=== PATIENT | male | born 1970 | race Caucasian/White ===

== ENCOUNTER 2016-09-05 08:11 | Emergency (ER) | payer OTHER ==
[2016-09-05 08:17] VITALS: RESP 18; TEMP 97.9
--- NOTE | 2016-09-05 08:35 | EDPHY ---
H & P Stated Complaint: 2 days @ altitude from sea level;altitude sickness sxs:Nausea, h/a,SOB Time Seen by Provider: 09/05/16 08:34 - Personal History Current Tetanus Diphtheria and Acellular Pertussis (TDAP): Yes - Medical/Surgical History Other PMH: obesity - Social History Smoking Status: Never smoked Constitutional: Initial Vital Signs Temperature (C) 36.6 C 09/05/16 08:14 Heart Rate 79 09/05/16 08:14 Respiratory Rate 18 09/05/16 08:14 Blood Pressure 176/112 H 09/05/16 08:14 O2 Sat (%) 96 09/05/16 08:14 O2 Delivery Mode Room Air Allergies/Adverse Reactions: No Known Allergies Allergy (Unverified 09/05/16 08:13) Home Medications: Medication Instructions Recorded NK [No Known Home Meds] 09/05/16 Medical Decision Making - Diagnostics Imaging Results: Imaging Impressions Chest/Thorax CTA 09/05/16 08:46 Impression: No evidence for pulmonary embolic disease. Results called and discussed with Palmer Torres MD, at 09/05/2016 9:42 General information for patients regarding this examination can be found at [email or web address]. If you have questions or comments about this report, please contact me at [phone] (hospital) or [phone] (cell). A test result has been communicated to a licensed care provider and documented in the [facility] Critical Result system on 09/05/2016 9:43, Message ID [id number]. ED Course/Re-evaluation: CHIEF COMPLAINT: Headache, nausea, shortness of breath. HISTORY OF PRESENT ILLNESS: This patient is an obese 45 year old male complaining of headache, nausea, and shortness of breath onset this morning. He had [place] a cabin [place] a [place] flight from [place], [place]. He noted a slight headache last night, but felt fine otherwise. This morning he woke with increased headache as well as nausea and shortness of breath. He endorses slight pain in the "front of his throat" which he says may be related to his nausea. He denies pain in his calves or history of heart or breathing problems. He denies fever, chills, pain in his chest, or other associate symptoms. REVIEW OF SYSTEMS: A 10 point review of systems was performed and is negative with the exception of the elements mentioned in the history of present illness. PHYSICAL EXAM: HR, BP, O2 Sat, RR. Temp noted General Appearance: Alert, well hydrated, appropriate, and non-toxic appearing. Head: Atraumatic without scalp tenderness or obvious injury Eyes: Pupils equal, round, reactive to light and accommodation, EOMI, no trauma , no injection. Nose: Atraumatic, no rhinorrhea, clear. Throat: There is no erythema or exudates, no lesions, normal tonsils, mucus membranes moist. Neck: Supple, nontender, no lymphadenopathy. Respiratory: No retractions, no distress, no wheezes, and no accessory muscle use. Lungs are clear to auscultation bilaterally. Cardiovascular: Regular rate and rhythm, no murmurs, rubs, or gallops. Good capillary refill all extremities. Gastrointestinal: Abdomen is soft, nontender, non-distended, no masses, no rebound, no guarding, no peritoneal signs. Musculoskeletal: Normal active ROM of all extremities, atraumatic. Neurological: Alert, appropriate, and interactive. Non-focal neuro exam. Skin: No rashes, good turgor, no nodules on palpation. Past medical history: Gastritis Past surgical history: Noncontributory Family history: Noncontributory Social history: Lives in [place], [place]. DIAGNOSTICS/PROCEDURES/CRITICAL CARE TIME: The 12 lead EKG was interpreted by myself. See hard copy and/or "tracemaster" electronic copy for interpretation. Sinus rhythm, rate 77. Incomplete right bundle branch block. Study: CT Angiogram of the chest Indication: Shortness of breath Results: CT angiogram of the chest was obtained. The results of the study are normal. The study was read by the radiologist, Dr. Hale. I viewed the images myself on the PACS system. DIFFERENTIAL DIAGNOSIS: Includes but not limited to: altitude sickness, DVT, pulmonary embolism. MEDICAL DECISION MAKING: This patient is a 45 year old male presenting today with headache, nausea, and shortness of breath onset this morning. [place], on a one-stop flight. Physical exam is unremarkable. He denies history of heart of breathing problems. He denies recent illness. Plan for EKG, CT Chest, I-Stat, and labs. Plan to treat with Reglan, Toradol, and Decadron for management of symptoms. CT, EKG, and labs unremarkable. Plan to discharge home in good condition with precautions about altitude. Patient does not want to return to his cabin and 9000 feet and would prefer to stay here in [place]. I have told him to use 800 mg of ibuprofen if he does any day trips and to stay very hydrated. Return precautions discussed. The patient is comfortable with this plan. - Data Points Laboratory Results: Laboratory Results 09/05/16 09:01 09/05/16 09:01 09/05/16 09/05/16 09/05/16 09:01 09:01 09:01 WBC 9.49 10^3/uL 10^3/uL (3.80-9.50) RBC 5.45 10^6/uL 10^6/uL (4.40-6.38) Hgb 15.3 g/dL g/dL (13.7-17.5) POC Hgb 15.3 gm/dL gm/dL (14.5-17.3) Hct 44.0 % % (40.0-51.0) POC Hct 45 % % (42.8-50.6) MCV 80.7 fL L fL (81.5-99.8) MCH 28.1 pg pg (27.9-34.1) MCHC 34.8 g/dL g/dL (32.4-36.7) RDW 12.6 % % (11.5-15.2) Plt Count 317 10^3/uL 10^3/uL (150-400) MPV 9.0 fL fL (8.7-11.7) Neut % (Auto) 77.3 % H % (39.3-74.2) Lymph % (Auto) 16.6 % % (15.0-45.0) [place] % (Auto) 4.6 % % (4.5-13.0) Eos % (Auto) 0.7 % % (0.6-7.6) Baso % (Auto) 0.3 % % (0.3-1.7) Nucleat RBC Rel Count 0.0 % % (0.0-0.2) Absolute Neuts (auto) 7.32 10^3/uL H 10^3/uL (1.70-6.50) Absolute Lymphs (auto) 1.58 10^3/uL 10^3/uL (1.00-3.00) Absolute Monos (auto) 0.44 10^3/uL 10^3/uL (0.30-0.80) Absolute Eos (auto) 0.07 10^3/uL 10^3/uL (0.03-0.40) Absolute Basos (auto) 0.03 10^3/uL 10^3/uL (0.02-0.10) Absolute Nucleated RBC 0.00 10^3/uL 10^3/uL (0-0.01) Immature Gran % 0.5 % % (0.0-1.1) Immature Gran # 0.05 10^3/uL 10^3/uL (0.00-0.10) POC Sodium 145 mEq/L H mEq/L (134-144) Sodium 145 mEq/L H mEq/L (134-144) POC Potassium 3.4 mEq/L mEq/L (3.3-5.0) Potassium 3.6 mEq/L mEq/L (3.5-5.2) POC Chloride 103 mEq/L mEq/L (96-108) Chloride 107 mEq/L mEq/L (97-110) Carbon Dioxide 27 mEq/l mEq/l (22-31) Anion Gap 11 mEq/L mEq/L (8-16) POC BUN 14 mg/dL mg/dL (7-23) BUN 14 mg/dL mg/dL (7-23) Creatinine 1.0 mg/dL mg/dL (0.7-1.3) POC Creatinine 0.9 mg/dL mg/dL (0.8-1.5) Estimated GFR > 60 Glucose 120 mg/dL H mg/dL (70-100) POC Glucose 120 mg/dL H mg/dL (70-100) Calcium 9.4 mg/dL mg/dL (8.5-10.4) Troponin I < 0.012 ng/mL ng/mL (0-0.034) NT-Pro-B Natriuret Pep 30 pg/mL pg/mL (0-125) Medications Given: Discontinued Medications Dexamethasone (Decadron Injection) 10 mg IVP EDNOW ONE Stop: 09/05/16 08:48 Last Admin: 09/05/16 09:20 Dose: 10 mg Ketorolac Tromethamine (Toradol) 30 mg IVP EDNOW ONE Stop: 09/05/16 08:48 Last Admin: 09/05/16 09:20 Dose: 30 mg Metoclopramide HCl (Reglan Injection) 10 mg IVP EDNOW ONE Stop: 09/05/16 08:48 Last Admin: 09/05/16 09:20 Dose: 10 mg Point of Care Test Results: 09/05/16 09:01 POC Sodium 145 H POC Potassium 3.4 POC Chloride 103 POC BUN 14 POC Creatinine 0.9 POC Glucose 120 H Departure - Departure Disposition: Home, Routine, Self-Care Clinical Impression: Altitude sickness Qualifiers: Encounter type: initial encounter Qualified Code(s): T70.29XA - Other effects of high altitude, initial encounter Condition: Good Instructions: Mountain Sickness (ED) Additional Instructions: 1. Use 800 mg of ibuprofen before you go up to altitude 2. Stay hydrated to the point where you need to urinate every 2-3 hours 3. Return to the ED for increased headache, nausea, or difficulty breathing, any sharp yost in your chest or legs, or any other worsening of condition. Referrals: MARGARET CIFUENTES [Other] - As per Instructions Report Scribed for: Palmer Torres Report Scribed by: Aury Meade Date of Report: 09/05/16 Time of Report: 08:49
[2016-09-05] MEDS ORDERED: KETOROLAC 30 MG/1 ML SDV IVP ONE (08:47)
[2016-09-05] MEDS ORDERED: METOCLOPRAMIDE 10 MG/2 ML VIAL IVP ONE (08:47)
[2016-09-05] MEDS ORDERED: DEXAMETHASONE 10 MG/ML VIAL IVP ONE (08:47)
[2016-09-05] MEDS ORDERED: IOPAMIDOL (ISOVUE 370) 100 ML BTL IV ONE (08:51)
--- NOTE | 2016-09-05 08:55 | CPEKG ---
Heart Rate: 77 RR Interval: 779 P-R Interval: 152 QRSD Interval: 110 QT Interval: 376 QTC Interval: 426 P [place]: 22 QRS [place]: -23 T Wave [place]: 13 EKG Severity - ABNORMAL ECG - EKG Impression: SINUS RHYTHM EKG Impression: INCOMPLETE RIGHT BUNDLE BRANCH BLOCK Electronically Signed By: Palmer Torres 05-Sep-2016 13:44:19
[2016-09-05] MEDS ORDERED: NS 1,000 ML IV ONE (09:00)
[2016-09-05 09:13] LABS: % IMMATURE GRANULYOCYTES 0.5 % (0.0-1.1); ABSOLUTE IMMATURE GRANULOCYTES 0.05 10^3/uL (0.00-0.10); ADD DIFF? NO; ADD MORPH? NO; ADD SCAN? NO; ATYPICAL LYMPHOCYTE FLAG 0 (0-99); FRAGMENT RBC FLAG 0 (0-99); HEMOGLOBIN 15.3 g/dL (13.7-17.5); LEFT SHIFT FLG 0 (0-99); LIPEMIA HEMOLYSIS FLAG 90 (0-99); MEAN CELL HEMOGLOBIN 28.1 pg (27.9-34.1); MEAN CELL HEMOGLOBIN CONCENTR. 34.8 g/dL (32.4-36.7); MEAN CELL VOLUME 80.7 fL (81.5-99.8); PLATELET CLUMPS FLAG 0 (0-99); PLATELET COUNT 317 10^3/uL (150-400); RED BLOOD CELL COUNT 5.45 10^6/uL (4.40-6.38); RED CELL DISTRIBUTION WIDTH 12.6 % (11.5-15.2)
[2016-09-05 09:30] LABS: ANION GAP 11 mEq/L (8-16); CALCIUM 9.4 mg/dL (8.5-10.4); CARBON DIOXIDE 27 mEq/l (22-31); CHLORIDE 107 mEq/L (97-110); GLOMERULAR FILTRATION RATE > 60; GLUCOSE 120 mg/dL (70-100); POTASSIUM 3.6 mEq/L (3.5-5.2); SODIUM 145 mEq/L (134-144)
[2016-09-05 09:42] LABS: TROPONIN I < 0.012 ng/mL (0-0.034)
[2016-09-05 10:01] VITALS: BP 150/89; PULSE 80; O2SAT 95
== END 2016-09-05 10:02 | disposition home or self-care (01) ==
DX: T70.29XA Other effects of high altitude, initial encounter (principal)
CPT/HCPCS: 82947-QW; 96374; J1885; J2765; Q9967